=== PATIENT | male | born 1935 | race Caucasian/White ===

== ENCOUNTER 2018-03-18 14:34 | Emergency (ER) | payer MEDICARE, BC ==
[2018-03-18 15:05] VITALS: BP 102/73
--- NOTE | 2018-03-18 15:32 | UC ---
HPI Febrile Illness - HPI Summary HPI Summary: The patient is a 82-year-old male with a 2 day history of fever and chills as well as myalgias and arthralgias. He has had a headache. 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 HERNIA 2014 - Family History Known Family History: Positive: Hypertension - Social History Alcohol Use: Occasionally Substance Use Type: None Smoking Status (MU): Never Smoked Tobacco Review of Systems Constitutional: Fever, Chills Skin: Negative Eyes: Negative ENT: Negative Respiratory: Negative Cardiovascular: Negative Gastrointestinal: Negative Genitourinary: Negative Motor: Negative Neurovascular: Negative Musculoskeletal: Arthralgia, Myalgia Neurological: Headache Psychological: Negative Is Patient Immunocompromised?: No All Other Systems Reviewed And Are Negative: Yes Physical Exam Triage Information Reviewed: Yes Appearance: Well-Appearing, No Pain Distress, Well-Nourished Vital Signs: Initial Vital Signs Temp 100.3 F 03/18/18 14:59 Pulse 80 03/18/18 14:59 Resp 20 03/18/18 14:59 BP 102/73 03/18/18 14:59 Pulse Ox 95 03/18/18 14:59 Vital Signs Reviewed: Yes Eyes: Positive: Conjunctiva Clear ENT: Positive: Hearing grossly normal. Negative: Nasal congestion, Nasal drainage, Trismus, Muffled voice, Hoarse voice, Sinus tenderness, Uvula midline Neck: Positive: Supple, Nontender, No Lymphadenopathy Respiratory: Positive: Lungs clear, Normal breath sounds, No respiratory distress Cardiovascular: Positive: RRR, No Murmur Abdomen Description: Positive: Soft. Negative: Nontender - mild LLQ tenderness , Bruit, CVA Tenderness (R), CVA Tenderness (L), Distended, Guarding, Hernia @ Musculoskeletal: Positive: ROM Intact, No Edema Neurological: Positive: Alert Psychological Exam: Normal Skin Exam: Normal Diagnostics - Laboratory Diagnostic Studies Completed/Ordered: udip ++ glucose - Radiology No standard instances Xray Interpretation: No Acute Changes - 1. EVIDENCE OF EXPOSURE TO GRANULOMATOUS DISEASE WITH PATCHY NODULAR OPACIFICATION OF THE RIGHT LUNG BASE. RECOMMEND CONSIDERATION OF CORRELATION WITH CT OF THE CHEST. Radiology Interpretation Completed By: Radiologist Course/Dx - Diagnoses Clinic Provider Diagnoses: FEBRILE ILLNESS. ?PNEUMONIA VS LYME DISEASE VS OTHER Discharge - Sign-Out/Discharge Documenting (check all that apply): Patient Departure - Discharge Plan Condition: Stable Disposition: HOME Prescriptions: DOXYcycline CAP(*) [DOXYcycline 100MG CAP(*)] 100 mg PO BID #28 cap Patient Education Materials: Fever in Adults (ED) Referrals: No Primary Care Phys,NOPCP [Primary Care Provider] - Additional Instructions: BLOOD WORK PENDING INCLUDING A TEST FOR LYME DISEASE SEE YOUR MD FIRST AVAILABLE APPT RECHECK FOR NEW OR WORSENING SYMPTOMS OR IF STILL FEBRILE AFTER TAKING ANTIBOITIC FOR 48 HOURS THE RADIOLOGIST HAS SUGGESTED A CT OF YOUR CHEST "EVIDENCE OF EXPOSURE TO GRANULOMATOUS DISEASE WITH PATCHY NODULAR OPACIFICATION OF THE RIGHT LUNG BASE. RECOMMEND CONSIDERATION OF CORRELATION WITH CT OF THE CHEST." - Billing Disposition and Condition Condition: STABLE Disposition: Home
--- NOTE | 2018-03-18 15:53 | RAD ---
HISTORY: fever/rare cough COMPARISONS: None VIEWS: 7: Frontal dual-energy and lateral views of the chest. FINDINGS: CARDIOMEDIASTINAL SILHOUETTE: The cardiomediastinal silhouette is normal. LETICIA: The leticia are normal. PLEURA: The costophrenic angles are sharp. No pleural abnormalities are noted. LUNG PARENCHYMA: Calcified granulomas are noted. There is patchy nodular opacification of the right lung base ABDOMEN: The upper abdomen is clear. There is no subphrenic gas. BONES AND SOFT TISSUES: Degenerative changes are noted along the spine. OTHER: None. IMPRESSION: 1. EVIDENCE OF EXPOSURE TO GRANULOMATOUS DISEASE WITH PATCHY NODULAR OPACIFICATION OF THE RIGHT LUNG BASE. RECOMMEND CONSIDERATION OF CORRELATION WITH CT OF THE CHEST. 2. OTHERWISE, NO ACTIVE CARDIOPULMONARY DISEASE.
[2018-03-18 19:34] LABS: ABS Basophils 0 10^3/ul (0-0.2); ABS Eosinophils 0 10^3/ul (0-0.6); ABS Lymphocytes 0.8 10^3/ul (1.0-4.8); ABS Monocytes 1.1 10^3/ul (0-0.8); ABS Neutrophils 5.5 10^3/ul (1.5-7.7); ABS Nucleated RBC 0 10^3/ul; Eosinophil % 0.7 % (0-6); Hematocrit 40 % (42-52); Hemoglobin 13.2 g/dl (14.0-18.0); Lymphocyte % 10.2 % (25-47); Mean Corpuscular HGB Conc 33 g/dl (31-36); Mean Corpuscular Hemoglobin 31 pg (27-31); Mean Corpuscular Volume 92 fL (80-94); Mean Platelet Volume 7.9 um3 (7.4-10.4); Nucleated Red Blood Cells % 0; Platelet Count 208 10^3/ul (150-450); Red Blood Count 4.34 10^6/ul (4.00-5.40); Red Cell Distribution Width 14 % (10.5-15); White Blood Count 7.4 10^3/ul (3.5-10.8)
[2018-03-18 19:44] LABS: EGFR Non-African American 78.8 (>60)
== END 2018-03-18 16:34 | disposition home or self-care (01) ==
LOC: UCCORT 14:34
DX: R50.9 Fever, unspecified (principal); M79.1 Myalgia; M25.50 Pain in unspecified joint; Z79.82 Long term (current) use of aspirin; Z88.2 Allergy status to sulfonamides
CPT/HCPCS: 36415; 71046; 80048; 81003; 85025; 86617; 86618; 99202; G0463